=== PATIENT | male | born 1960 | race Hispanic/Latino ===

== ENCOUNTER 2017-08-13 23:01 | Emergency (ER) | payer MEDICARE ==
[2017-08-13 23:53] LABS: ALBUMIN 3.6 g/dL (3.5-5.0); BASOPHILS % (AUTO) 0.9 % (0.0-5.0); BILIRUBIN,TOTAL 0.4 mg/dL (0.2-1.0); HEMATOCRIT 32.3 % (42-54); LYMPHOCYTES % (AUTO) 20.5 % (21.0-51.0); MEAN CORPUSCULAR HEMOGLOBIN 33.8 pg (27.0-33.0); MEAN CORPUSCULAR HGB CONC 34.4 g/dL (32.0-36.0); MEAN CORPUSCULAR VOLUME 98.1 fL (79-99); MONOCYTES % (AUTO) 9.2 % (3.0-13.0); NEUTROPHILS % (AUTO) 64.4 % (40.0-77.0); PLATELET COUNT (AUTO) 209 K/uL (130-400); RED CELL DISTRIBUTION WIDTH 16.8 % (11.0-15.5)
[2017-08-13 23:59] LABS: CREATININE 9.9 mg/dL (0.5-1.5)
== END 2017-08-14 00:33 | disposition home or self-care (01) ==
LOC: EDH 23:01
DX: I12.0 Hypertensive chronic kidney disease with stage 5 chronic kidney disease or end stage renal disease (principal); E11.22 Type 2 diabetes mellitus with diabetic chronic kidney disease; N18.6 End stage renal disease; Z99.2 Dependence on renal dialysis
CPT/HCPCS: 36415; 80053; 85025; 93005

== ENCOUNTER → 2018-08-02 | Outpatient (CLI) | payer MEDICARE | END | disposition home or self-care (01) | LOC: SHCH 11:00 | PROVIDERS: ATTEND Internal Medicine Cardiovascular Disease | DX: I35.8 Other nonrheumatic aortic valve disorders (principal); I11.9 Hypertensive heart disease without heart failure | CPT/HCPCS: 93306 ==

== ENCOUNTER → 2018-08-05 | Outpatient (CLI) | payer MEDICARE ==
[~2018-08-05] VITALS: Ht 167.6 cm; Wt 66.2 kg
[~2018-08-05] MED LIST: REGADENOSON 0.4 MG/5 ML PF SYG IVP SCH
== END | disposition home or self-care (01) ==
LOC: SHCH 07:54
PROVIDERS: ATTEND Internal Medicine Cardiovascular Disease
DX: I20.9 Angina pectoris, unspecified (principal)
CPT/HCPCS: 78452; 93017; 96374; A9500 ×2; J2785

== ENCOUNTER 2019-12-16 06:20 | Day surgery (SDC) | payer MEDICARE ==
[~2019-12-16] VITALS: Ht 157.5 cm; Wt 67.2 kg
[~2019-12-16 06:20] MED LIST changes: +AMLO5TAB9 PO; +ASPI-1197 PO; +FOLI0.8T22 PO; +HYDR100T27 PO; +LABE100T5 PO; -REGADENOSON 0.4 MG/5 ML PF SYG IVP SCH; +SUCR500T PO
[2019-12-16] MEDS ORDERED: SODIUM CHLORIDE 0.9% 1000ML 1,000 ML IV ONE (07:19)
[2019-12-16 07:30] VITALS: BP 132/61
[2019-12-16 07:59] LABS: CREATININE 6.8 mg/dL (0.5-1.5); POTASSIUM 5.6 mmol/L (3.5-5.1)
[2019-12-16] MEDS ORDERED: PROPOFOL 10 MG/ML 20ML VIAL IV ONE ×2 (08:45)
[2019-12-16 09:15] VITALS: BP 109/65
[2019-12-16 09:20] VITALS: BP 114/76
[2019-12-16 09:25] VITALS: BP 127/62
[2019-12-16 09:35] VITALS: BP 126/57
[2019-12-16 09:49] VITALS: BP 155/59
== END 2019-12-16 09:55 ==
LOC: ENDO 06:20 → DAH 06:20 → ENDO 09:55
PROVIDERS: ATTEND Internal Medicine Gastroenterology
DX: Z12.11 Encounter for screening for malignant neoplasm of colon (principal); K63.5 Polyp of colon; K62.1 Rectal polyp; I13.2 Hypertensive heart and chronic kidney disease with heart failure and with stage 5 chronic kidney disease, or end stage renal disease; N18.6 End stage renal disease; I50.9 Heart failure, unspecified; Z20.828 Contact with and (suspected) exposure to other viral communicable diseases; E78.5 Hyperlipidemia, unspecified; Z99.2 Dependence on renal dialysis
CPT/HCPCS: 36415; 45380; 45385; 80048; 93005; A4215; A4221; A4222; A4223; A4606; A4620; A4649; A4657; A4663; C9803; J2704 ×2; J7030; U0003

== ENCOUNTER → 2020-10-01 | Outpatient (CLI) | payer MEDICARE ==
[~2020-10-01] MED LIST changes: +AMLO-257 PO; -AMLO5TAB9 PO
== END | disposition home or self-care (01) ==
LOC: SHCH 10:00
PROVIDERS: ATTEND Internal Medicine Cardiovascular Disease
DX: I10 Essential (primary) hypertension (principal); R01.1 Cardiac murmur, unspecified
CPT/HCPCS: 93306; 93356